=== PATIENT | male | born 1960 | race Caucasian/White ===

== ENCOUNTER 2024-01-02 12:15 | Emergency (ER) | payer OTHER ==
[2024-01-02] MEDS: Ondansetron 4 MG Tab.DIS PO ONE (12:25)
[2024-01-02] MEDS: Diphtheria,Pertussis(Acell),Tetanus Vaccine 0.5 ML Syringe IM ONE (12:33)
[2024-01-02] MEDS: HYDROmorphone 1 MG/ML Syringe IM ONE (12:42)
[2024-01-02] MEDS: Lidocaine 1% 5 ML VIAL INJECT ONE (13:48)
[2024-01-02] MEDS: Bacitracin Oint 1 GM U/D Packet TOP ONE (14:17)
== END 2024-01-02 15:02 | disposition home or self-care (01) ==
LOC: DL.ED 12:15
DX: S62.634A Displaced fracture of distal phalanx of right ring finger, initial encounter for closed fracture (principal); S61.214A Laceration without foreign body of right ring finger without damage to nail, initial encounter; S61.216A Laceration without foreign body of right little finger without damage to nail, initial encounter; Z91.013 Allergy to seafood; X58.XXXA Exposure to other specified factors, initial encounter
CPT/HCPCS: 12002; 73130; 90471; 90715; 96372; 99282; 99283; A9270; J1171; J3490

== ENCOUNTER 2024-11-14 14:10 | Emergency (ER) | payer OTHER ==
[2024-11-14] MEDS ORDERED: Sodium Chloride 0.9% 10 ML Syringe FLUSH PRN ×2 (14:21)
[2024-11-14 14:40] LABS: BASOPHILS PERCENT AUTO 0.2 % (0.0-1.0); EOSINOPHILS PERCENT AUTO 3.4 % (1.0-3.0); LYMPHOCYTES PERCENT AUTO 32.4 % (20.5-50.1); MONOCYTES PERCENT AUTO 14.9 % (2-8); NEUTROPHILS PERCENT AUTO 49.1 % (42.2-75.2); PLATELET COUNT,PLT 199 10^3/uL (150-450); RED BLOOD CELL COUNT 3.91 10^6/uL (4.6-6.2); WHITE BLOOD CELL COUNT,WBC 5.3 10^3/uL (5.0-10.0)
[2024-11-14 14:56] LABS: INR 1.0 (0.9-1.2)
[2024-11-14 15:03] LABS: A/G RATIO 0.9; ALANINE AMINOTRANSFERASE,ALT 27 U/L (16-63); ASPARTATE AMNIOTRANSFERASE,AST 25 U/L (15-37); BILIRUBIN TOTAL 0.7 mg/dL (0.2-1.0); BLOOD UREA NITROGEN,BUN 11 mg/dL (7-18); CARBON DIOXIDE,CO2 27 mmol/L (21-32); CHLORIDE,CL 108 mmol/L (98-107); CREATININE 0.66 mg/dL (0.70-1.30); ESTIMATED GFR 105 mL/min (>=60); GLUCOSE RANDOM 97 mg/dL (70-99); POTASSIUM,K 4.3 mmol/L (3.5-5.1); PROTEIN TOTAL,TP 7.4 g/dL (6.4-8.2); SODIUM,NA 143 mmol/L (136-145)
== END 2024-11-14 17:28 | disposition home or self-care (01) ==
LOC: DL.ED 14:10
DX: R07.9 Chest pain, unspecified (principal); Z91.013 Allergy to seafood
CPT/HCPCS: 36415; 71045; 80053; 84484; 85025; 85610; 93005; 93010; 99284; 99285